=== PATIENT | male | born 1935 | race African-American/Black ===

== ENCOUNTER → 2016-12-14 | Outpatient (CLI) | payer MEDICARE, OTHER ==
[~2016-12-14] MED LIST: REGADENOSON 0.4 MG/5 ML SYRINGE ONE
== END | disposition home or self-care (01) ==
LOC: CVU 08:05
PROVIDERS: ATTEND Internal Medicine Cardiovascular Disease
DX: I65.23 Occlusion and stenosis of bilateral carotid arteries (principal); I10 Essential (primary) hypertension; I25.10 Atherosclerotic heart disease of native coronary artery without angina pectoris; E78.5 Hyperlipidemia, unspecified; I63.9 Cerebral infarction, unspecified; Z95.1 Presence of aortocoronary bypass graft
CPT/HCPCS: 78452; 93017; 93880; A9502; J2785

== ENCOUNTER → 2017-09-04 | Outpatient (CLI) | payer MEDICARE | END | disposition home or self-care (01) | LOC: CVU 14:30 | PROVIDERS: ATTEND Internal Medicine Cardiovascular Disease | DX: I65.23 Occlusion and stenosis of bilateral carotid arteries (principal); I10 Essential (primary) hypertension; I63.9 Cerebral infarction, unspecified | CPT/HCPCS: 93306; 93880 ==

== ENCOUNTER → 2019-09-30 | Outpatient (CLI) | payer MEDICARE | END | disposition home or self-care (01) | LOC: CVU 12:23 | PROVIDERS: ATTEND Internal Medicine Cardiovascular Disease | DX: I65.23 Occlusion and stenosis of bilateral carotid arteries (principal); I25.119 Atherosclerotic heart disease of native coronary artery with unspecified angina pectoris; I10 Essential (primary) hypertension; E78.5 Hyperlipidemia, unspecified; I63.9 Cerebral infarction, unspecified; Z95.1 Presence of aortocoronary bypass graft | CPT/HCPCS: 93306; 93880 ==

== ENCOUNTER → 2019-10-22 | Outpatient (CLI) | payer MEDICARE | END | disposition home or self-care (01) | LOC: RAD 07:24 | PROVIDERS: ATTEND Internal Medicine Cardiovascular Disease | DX: I21.19 ST elevation (STEMI) myocardial infarction involving other coronary artery of inferior wall (principal); R06.02 Shortness of breath; I63.9 Cerebral infarction, unspecified; I65.23 Occlusion and stenosis of bilateral carotid arteries; Z95.1 Presence of aortocoronary bypass graft | CPT/HCPCS: 78452; 93017; A9502; J2785 ==

== ENCOUNTER → 2020-01-29 | Outpatient (CLI) | payer MEDICARE | END | disposition home or self-care (01) | LOC: RAD 17:03 | PROVIDERS: ATTEND Family Medicine | DX: R60.9 Edema, unspecified (principal) ==